=== PATIENT | female | born 2000 | race Caucasian/White ===

== ENCOUNTER 2020-09-15 06:39 | Outpatient (NON) | payer OTHER, SELFPAY ==
[2020-09-15 23:55] LABS: SARS-CoV-2 RNA PCR Positive
== END 2020-09-15 06:40 ==
LOC: ANHCOVIDDT 07:16
PROVIDERS: PCP Family Medicine; Visit Provider Family Medicine
DX: R50.9 Fever, unspecified (principal); R51.9 Headache, unspecified; U07.1 COVID-19
CPT/HCPCS: 87635; C9803; U0003

== ENCOUNTER 2025-01-19 15:34 | Outpatient (CLI) | payer OTHER, SELFPAY ==
--- NOTE | ~2025-01-19 | US_ITS ---
EXAM: Focused ultrasound examination of the soft tissues of the left upper arm HISTORY: R22.32 - Localized swelling, mass and lump, left upper limb TECHNIQUE: Sonographic evaluation of the soft tissues of the left upper extremity were performed asse ssing grayscale appearance and color Doppler flow. COMPARISON: None. FINDINGS: Sonographic evaluation of the soft tissues of the left upper extremity demonstrate benign fibrofatty and fibromuscular elements without a cystic or solid lesion of concern. IMPRESSION: No sonographic abnormality is appreciated on focused ultrasound examination. Reviewed, dictated and finalized at location A.
== END 2025-01-19 15:35 | disposition home or self-care (01) ==
LOC: MICIMG 15:35
PROVIDERS: PCP Nurse Practitioner Family; Visit Provider Nurse Practitioner Family
DX: R22.32 Localized swelling, mass and lump, left upper limb (principal)
CPT/HCPCS: 76882